=== PATIENT | female | born 1995 | race American Indian/Alaskan Native ===

== ENCOUNTER 2016-07-21 12:58 | Emergency (ER) | payer BC ==
[2016-07-21] MEDS ORDERED: TYLENOL ONE (13:10)
[2016-07-21] MEDS ORDERED: TYLENOL PO ONE (13:16)
--- NOTE | 2016-07-21 15:44 | Emergency Department Report ---
HPI - General Chief Complaint: Upper Respiratory Infection ED Past Medical Hx - Past Medical History Previous Medical History?: Yes Hx Hypertension: Yes Hx Diabetes: Yes - Surgical History Past Surgical History?: No - Social History Smoking Status: Never Smoker Substance Use Type: None - Medications Home Medications: Home Medications Medication Instructions Recorded Confirmed Last Taken Type Butalb/Acetamin/Caff 50-325-40 1 tab PO Q8H PRN #15 tablet 07/08/13 Unknown Rx [Fioricet] Cyclobenzaprine [Flexeril] 10 mg PO TID PRN #12 tablet 07/08/13 Unknown Rx HYDROcodone/APAP 5-325 [[place] 1 each PO Q6HR PRN #15 tablet 07/08/13 Unknown Rx 5/325 mg] Ibuprofen [Motrin 800 MG tab] 800 mg PO TID #30 tablet 07/08/13 Unknown Rx Sulfamethoxazole/Trimethoprim 1 each PO BID #14 tablet 07/08/13 Unknown Rx [Bactrim Ds] ED Review of Systems ROS: Stated complaint: FLU Other details as noted in HPI Physical Exam - Physical Exam Vital Signs: Vital Signs 07/21/16 07/21/16 13:13 13:17 Temperature 100.1 F H Pulse Rate 114 H Respiratory 16 16 Rate Blood Pressure 151/87 O2 Sat by Pulse 99 Oximetry ED Course Vital Signs 07/21/16 07/21/16 13:13 13:17 Temperature 100.1 F H Pulse Rate 114 H Respiratory 16 16 Rate Blood Pressure 151/87 O2 Sat by Pulse 99 Oximetry Critical care attestation.: If time is entered above; I have spent that time in minutes in the direct care of this critically ill patient, excluding procedure time. ED Disposition Condition: Stable Referrals: PRIMARY CARE [Primary Care Provider] - 3-5 Days
--- NOTE | 2016-07-21 17:17 | XRay Report ---
FINAL REPORT PROCEDURE: XR CHEST ROUTINE 2V TECHNIQUE: PA lateral chest HISTORY: cough and fever COMPARISON: No prior studies are available for comparison. FINDINGS: Heart is top-normal in size. Extensive shallow inspiration particular on the lateral view with marked elevation of the hemidiaphragms. Mild central peribronchial cuffing and central congestion on the right likely exaggerated due to the markedly elevated right hemidiaphragm. Minimal right lung base atelectasis IMPRESSION: Severe shallow inspiration Minimal right lung base atelectasis Possible mild central bronchitis No wally consolidation or effusion.
[2016-07-21] MEDS ORDERED: TORADOL IM ONE (17:23)
[2016-07-21] MEDS ORDERED: DUONEB 0.5 MG-3 MG/3 ML SOLN IH ONE (17:24)
[2016-07-21 17:46] VITALS: BP 149/97
== END 2016-07-21 17:59 | disposition home or self-care (01) ==
LOC: ED 12:58
DX: J06.9 Acute upper respiratory infection, unspecified (principal); Z53.21 Procedure and treatment not carried out due to patient leaving prior to being seen by health care provider
CPT/HCPCS: 71020; 82962; 87400; 94640; 96372; 99284; J1885

== ENCOUNTER 2017-07-13 12:31 | Emergency (ER) | payer BC ==
[2017-07-13 12:37] VITALS: BP 160/101
--- NOTE | 2017-07-13 13:41 | Emergency Department Report ---
ED General Adult HPI - General Chief complaint: Upper Respiratory Infection Stated complaint: COLD SYMPTOMS Time Seen by Provider: 07/13/17 13:25 Source: patient Mode of arrival: Ambulatory Limitations: No Limitations - History of Present Illness Initial comments: 21-year-old obese female, sitting for complaint of headache back pain was located in the middle and sore throat. Patient reports she's been taking Excedrin for headache with no help. Last dose was 4 AM. She's had this similar symptoms 1 year ago. Patient denies any photophobia or change in vision. 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 She did check her diabetes blood sugar this morning was 100. She has a history of hypertension. -: week(s) (1) Location: head, back Radiation: non-radiation Severity scale (0 -10): 8 Quality: aching (located in the frontal of her head, and middle of her back.) Improves with: none Worsens with: movement Treatments Prior to Arrival: NSAID - Related Data Previous Rx's Medication Instructions Recorded Last Taken Type Butalb/Acetamin/Caff 50-325-40 1 tab PO Q8H PRN #15 tablet 07/08/13 Unknown Rx [Fioricet] Cyclobenzaprine [Flexeril] 10 mg PO TID PRN #12 tablet 07/08/13 Unknown Rx HYDROcodone/APAP 5-325 [[place] 1 each PO Q6HR PRN #15 tablet 07/08/13 Unknown Rx 5/325 mg] Sulfamethoxazole/Trimethoprim 1 each PO BID #14 tablet 07/08/13 Unknown Rx [Bactrim Ds] ALBUTEROL Inhaler [ProAir HFA 2 puff IH QID PRN #1 inhalation 07/21/16 Unknown Rx Inhaler] Azithromycin [Zithromax Z-EVETTE] 250 mg PO DAILY #6 tab 07/21/16 Unknown Rx predniSONE [Deltasone] 50 mg PO QDAY #5 tab 07/21/16 Unknown Rx Ibuprofen [Motrin 800 MG tab] 800 mg PO TID PRN #30 tablet 07/13/17 Unknown Rx Allergies Allergy/AdvReac Type Severity Reaction Status Date / Time No Known Allergies Allergy Verified 07/13/17 12:35 ED Review of Systems ROS: Stated complaint: COLD SYMPTOMS Other details as noted in HPI ENT: throat pain Respiratory: denies: cough, shortness of breath, wheezing Cardiovascular: denies: chest pain, palpitations Endocrine: no symptoms reported Gastrointestinal: denies: abdominal pain, nausea, diarrhea Genitourinary: denies: urgency, dysuria, discharge Musculoskeletal: back pain Neurological: headache. denies: weakness, paresthesias Psychiatric: denies: anxiety, depression Hematological/Lymphatic: denies: easy bleeding, easy bruising ED Past Medical Hx - Past Medical History Hx Hypertension: Yes Hx Diabetes: Yes - Social History Smoking Status: Never Smoker Substance Use Type: None - Medications Home Medications: Home Medications Medication Instructions Recorded Confirmed Last Taken Type Butalb/Acetamin/Caff 50-325-40 1 tab PO Q8H PRN #15 tablet 07/08/13 Unknown Rx [Fioricet] Cyclobenzaprine [Flexeril] 10 mg PO TID PRN #12 tablet 07/08/13 Unknown Rx HYDROcodone/APAP 5-325 [[place] 1 each PO Q6HR PRN #15 tablet 07/08/13 Unknown Rx 5/325 mg] Sulfamethoxazole/Trimethoprim 1 each PO BID #14 tablet 07/08/13 Unknown Rx [Bactrim Ds] ALBUTEROL Inhaler [ProAir HFA 2 puff IH QID PRN #1 inhalation 07/21/16 Unknown Rx Inhaler] Azithromycin [Zithromax Z-EVETTE] 250 mg PO DAILY #6 tab 07/21/16 Unknown Rx predniSONE [Deltasone] 50 mg PO QDAY #5 tab 07/21/16 Unknown Rx Ibuprofen [Motrin 800 MG tab] 800 mg PO TID PRN #30 tablet 07/13/17 Unknown Rx ED Physical Exam - General Limitations: No Limitations General appearance: alert, in no apparent distress, obese - Head Head exam: Present: atraumatic, normocephalic - Eye Eye exam: Present: normal appearance - ENT ENT exam: Present: mucous membranes moist - Expanded ENT Exam Expanded Throat exam: Positive: tonsillar erythema, tonsillomegaly - Neck Neck exam: Present: normal inspection - Respiratory Respiratory exam: Present: normal lung sounds bilaterally. Absent: respiratory distress - Cardiovascular Cardiovascular Exam: Present: regular rate, normal rhythm. Absent: systolic murmur, diastolic murmur, rubs, gallop - GI/Abdominal GI/Abdominal exam: Present: soft, normal bowel sounds - Skin Skin exam: Present: warm, dry, intact, normal color, other (thick coarse hair on the chin and full mustache). Absent: rash ED Course Vital Signs 07/13/17 12:35 Temperature 99.4 F Pulse Rate 80 Respiratory 20 Rate Blood Pressure 160/101 O2 Sat by Pulse 97 Oximetry Critical care attestation.: If time is entered above; I have spent that time in minutes in the direct care of this critically ill patient, excluding procedure time. ED Disposition Clinical Impression: Sorethroat Back pain Qualifiers: Back pain location: thoracic back pain Chronicity: acute Back pain laterality: bilateral Qualified Code(s): M54.6 - Pain in thoracic spine Headache Qualifiers: Headache type: unspecified Headache chronicity pattern: unspecified pattern Intractability: intractable Qualified Code(s): R51 - Headache Disposition: DC-01 TO HOME OR SELFCARE Is pt being admited?: No Does the pt Need Aspirin: No Condition: Stable Instructions: Chronic Back Pain (ED) Additional Instructions: Please take ibuprofen as prescribed. Her throat culture was negative, and back pain is chronic I recommended to follow up with her primary care provider for possible referral to physical therapy. Prescriptions: Ibuprofen [Motrin 800 MG tab] 800 mg PO TID PRN #30 tablet PRN Reason: Pain Forms: Work/School Release Form(ED)
[2017-07-13] MEDS ORDERED: MOTRIN PO ONE (14:29)
== END 2017-07-13 15:01 | disposition home or self-care (01) ==
LOC: ED 12:31
DX: M54.6 Pain in thoracic spine (principal); R51 Headache; J02.9 Acute pharyngitis, unspecified; E11.9 Type 2 diabetes mellitus without complications; I10 Essential (primary) hypertension
CPT/HCPCS: 87116; 87430; 99282